=== PATIENT | male | born 1980 | race Two or more races ===

== ENCOUNTER 2018-04-01 09:22 | Outpatient (CLI) | payer OTHER | END 2018-04-01 11:22 | disposition home or self-care (01) | LOC: ECT 09:22 | DX: F31.81 Bipolar II disorder (principal); K44.9 Diaphragmatic hernia without obstruction or gangrene; L30.9 Dermatitis, unspecified; K21.9 Gastro-esophageal reflux disease without esophagitis ==

== ENCOUNTER 2018-04-21 05:09 | Outpatient (RCR) | payer OTHER ==
[~2018-04-21] VITALS: Ht 188 cm; Wt 107.0 kg
[2018-04-21] MEDS ORDERED: NS 500ML ONE (05:10)
[2018-04-21] MEDS ORDERED: Succinylcholine 20mg/ml 10ml vial ONE (05:10)
[2018-04-21] MEDS ORDERED: Ketorolac 60mg Inj IM ONE (05:10)
[2018-04-21] MEDS ORDERED: Methohexital Sodium Syr 100mg/10ml IVP ONE (05:10)
[2018-04-21 09:18] VITALS: BP 128/81
[2018-04-21] MEDS ORDERED: Sodium Chloride 500ML 500 ML IV ONE (09:46)
[2018-04-21] MEDS ORDERED: Excedrin Migraine tab ORAL PRN (09:46)
[2018-04-21 09:50] VITALS: BP 142/82
[2018-04-21 09:55] VITALS: BP 140/74
[2018-04-21 10:00] VITALS: BP 140/73
[2018-04-21 10:05] VITALS: BP 128/72
[2018-04-21 11:59] VITALS: BP 128/81
[2018-04-23] MEDS ORDERED: Ketorolac 60mg Inj IM ONE (08:00)
[2018-04-23] MEDS ORDERED: Methohexital Sodium Syr 100mg/10ml IVP ONE (08:00)
[2018-04-23] MEDS ORDERED: NS 500ML ONE (08:00)
[2018-04-23] MEDS ORDERED: Succinylcholine 20mg/ml 10ml vial ONE (08:00)
[2018-04-23 10:03] VITALS: BP 129/82
[2018-04-23] MEDS ORDERED: Sodium Chloride 500ML 500 ML IV ONE (10:19)
[2018-04-23] MEDS ORDERED: Excedrin Migraine tab ORAL PRN (10:19)
[2018-04-23 10:20] VITALS: BP 129/61
[2018-04-23 10:25] VITALS: BP 121/59
[2018-04-23 10:30] VITALS: BP 129/53
[2018-04-23 10:35] VITALS: BP 125/61
[2018-04-28 09:15] VITALS: BP 144/99
[2018-04-28] MEDS ORDERED: Sodium Chloride 500ML 500 ML IV ONE (09:28)
[2018-04-28] MEDS ORDERED: Excedrin Migraine tab ORAL PRN (09:28)
[2018-04-28 09:30] VITALS: BP 150/91
[2018-04-28 09:35] VITALS: BP 149/95
[2018-04-28 09:40] VITALS: BP 153/100
[2018-04-28 09:45] VITALS: BP 149/103
[2018-04-28] MEDS ORDERED: Ketorolac 60mg Inj IM ONE (15:17)
[2018-04-28] MEDS ORDERED: NS 500ML ONE (15:17)
[2018-04-28] MEDS ORDERED: Methohexital Sodium Syr 100mg/10ml IVP ONE (15:17)
[2018-04-28] MEDS ORDERED: Succinylcholine 20mg/ml 10ml vial ONE (15:17)
[2018-04-30] MEDS ORDERED: Succinylcholine 20mg/ml 10ml vial ONE (07:00)
[2018-04-30] MEDS ORDERED: NS 500ML ONE (07:00)
[2018-04-30] MEDS ORDERED: Ketorolac 60mg Inj IM ONE (07:00)
[2018-04-30] MEDS ORDERED: Methohexital Sodium Syr 100mg/10ml IVP ONE (07:00)
[2018-04-30 09:03] VITALS: BP 128/91
[2018-04-30] MEDS ORDERED: Sodium Chloride 500ML 500 ML IV ONE (09:17)
[2018-04-30 09:20] VITALS: BP 146/91
[2018-04-30 09:25] VITALS: BP 139/95
[2018-04-30 09:30] VITALS: BP 158/85
[2018-04-30 09:35] VITALS: BP 149/85
[2018-05-02 08:45] VITALS: BP 123/86
[2018-05-02] MEDS ORDERED: Sodium Chloride 500ML 500 ML IV ONE (08:58)
[2018-05-02 09:00] VITALS: BP 152/88
[2018-05-02 09:05] VITALS: BP 133/65
[2018-05-02 09:10] VITALS: BP 138/69
[2018-05-02 09:15] VITALS: BP 138/67
[2018-05-02] MEDS ORDERED: NS 500ML ONE (11:58)
[2018-05-02] MEDS ORDERED: Methohexital Sodium Syr 100mg/10ml IVP ONE (11:58)
[2018-05-02] MEDS ORDERED: Ketorolac 60mg Inj IM ONE (11:58)
[2018-05-02] MEDS ORDERED: Succinylcholine 20mg/ml 10ml vial ONE (11:58)
== END 2018-05-02 | disposition home or self-care (01) ==
LOC: ECT 05:09
DX: F31.81 Bipolar II disorder (principal)
CPT/HCPCS: 90870; J0330; J2405; J3360; J7040

== ENCOUNTER 2018-05-05 05:27 | Outpatient (RCR) | payer OTHER ==
[~2018-05-05] VITALS: Ht 188 cm; Wt 107.3 kg
[2018-05-05] MEDS ORDERED: NS 500ML ONE ×3 (05:28)
[2018-05-05] MEDS ORDERED: Ketamine 500mg Inj ONE ×2 (05:28)
[2018-05-05] MEDS ORDERED: Succinylcholine 20mg/ml 10ml vial ONE ×3 (05:28)
[2018-05-05] MEDS ORDERED: Ketorolac 60mg Inj IM ONE ×3 (05:28)
[2018-05-05] MEDS ORDERED: Methohexital Sodium Syr 100mg/10ml IVP ONE (05:28)
[2018-05-05 08:51] VITALS: BP 144/98
[2018-05-05] MEDS ORDERED: Atropine Sulfate 0.4mg/ml inj IVP PRN (09:08)
[2018-05-05] MEDS ORDERED: Sodium Chloride 500ML 500 ML IV ONE (09:08)
[2018-05-05 09:10] VITALS: BP 137/72
[2018-05-05 09:15] VITALS: BP 161/91
[2018-05-05 09:20] VITALS: BP 152/51
[2018-05-05 09:25] VITALS: BP 160/82
[2018-05-07] MEDS ORDERED: Succinylcholine 20mg/ml 10ml vial ONE (08:00)
[2018-05-07] MEDS ORDERED: Methohexital Sodium Syr 100mg/10ml IVP ONE (08:00)
[2018-05-07] MEDS ORDERED: NS 500ML ONE (08:00)
[2018-05-07] MEDS ORDERED: Ketorolac 60mg Inj IM ONE (08:00)
[2018-05-07 10:09] VITALS: BP 126/82
[2018-05-07 10:30] VITALS: BP 141/92
[2018-05-07 10:35] VITALS: BP 153/48
[2018-05-07 10:40] VITALS: BP 160/73
[2018-05-07 10:45] VITALS: BP 159/78
[2018-05-07] MEDS ORDERED: Sodium Chloride 500ML 500 ML IV ONE (14:30)
[2018-05-09] MEDS ORDERED: NS 500ML ONE (08:00)
[2018-05-09] MEDS ORDERED: Ketorolac 60mg Inj IM ONE (08:00)
[2018-05-09] MEDS ORDERED: Methohexital Sodium Syr 100mg/10ml IVP ONE (08:00)
[2018-05-09] MEDS ORDERED: Midazolam 2mg/2ml Inj ONE (08:00)
[2018-05-09] MEDS ORDERED: Succinylcholine 20mg/ml 10ml vial ONE (08:00)
[2018-05-09 08:16] VITALS: BP 130/89
[2018-05-09] MEDS ORDERED: Sodium Chloride 500ML 500 ML IV ONE ×2 (08:30)
[2018-05-09 08:35] VITALS: BP 142/78
[2018-05-09 08:40] VITALS: BP 142/78
[2018-05-09 08:45] VITALS: BP 138/79
[2018-05-09 08:50] VITALS: BP 133/77
[2018-05-12] MEDS ORDERED: NS 500ML ONE (07:00)
[2018-05-12] MEDS ORDERED: Ketorolac 60mg Inj IM ONE (07:00)
[2018-05-12] MEDS ORDERED: Succinylcholine 20mg/ml 10ml vial ONE (07:00)
[2018-05-12] MEDS ORDERED: Ketamine 500mg Inj ONE (07:00)
[2018-05-12 10:11] VITALS: BP 133/90
[2018-05-12] MEDS ORDERED: Sodium Chloride 500ML 500 ML IV ONE (10:28)
[2018-05-12 10:30] VITALS: BP 147/86
[2018-05-12 10:35] VITALS: BP 157/71
[2018-05-12 10:40] VITALS: BP 156/71
[2018-05-12 10:45] VITALS: BP 129/85
[2018-05-14] MEDS ORDERED: Ketamine 500mg Inj ONE (08:00)
[2018-05-14] MEDS ORDERED: Succinylcholine 20mg/ml 10ml vial ONE (08:00)
[2018-05-14] MEDS ORDERED: Ketorolac 60mg Inj IM ONE (08:00)
[2018-05-14] MEDS ORDERED: NS 500ML ONE (08:00)
[2018-05-14 08:31] VITALS: BP 125/75
[2018-05-14] MEDS ORDERED: Sodium Chloride 500ML 500 ML IV ONE (08:45)
[2018-05-14 08:50] VITALS: BP 170/94
[2018-05-14 08:55] VITALS: BP 177/88
[2018-05-14 08:58] VITALS: BP 158/101
[2018-05-14 09:05] VITALS: BP 163/90
[2018-05-16] MEDS ORDERED: NS 500ML ONE (07:00)
[2018-05-16] MEDS ORDERED: Succinylcholine 20mg/ml 10ml vial ONE (07:00)
[2018-05-16] MEDS ORDERED: Ketorolac 60mg Inj IM ONE (07:00)
[2018-05-16] MEDS ORDERED: Ketamine 500mg Inj ONE (07:00)
[2018-05-16 09:41] VITALS: BP 133/93
[2018-05-16] MEDS ORDERED: Sodium Chloride 500ML 500 ML IV ONE (09:53)
[2018-05-16 09:55] VITALS: BP 158/103
[2018-05-16 10:00] VITALS: BP 172/99
[2018-05-16 10:05] VITALS: BP 162/100
[2018-05-16 10:10] VITALS: BP 165/100
[2018-05-19 09:13] VITALS: BP 148/98
[2018-05-19] MEDS ORDERED: Sodium Chloride 500ML 500 ML IV ONE (09:29)
[2018-05-19 09:30] VITALS: BP 148/89
[2018-05-19 09:35] VITALS: BP 158/92
[2018-05-19 09:40] VITALS: BP 163/97
[2018-05-19 09:45] VITALS: BP 168/93
[2018-05-21] MEDS ORDERED: Succinylcholine 20mg/ml 10ml vial ONE (07:00)
[2018-05-21] MEDS ORDERED: NS 500ML ONE (07:00)
[2018-05-21] MEDS ORDERED: Ketorolac 60mg Inj IM ONE (07:00)
[2018-05-21] MEDS ORDERED: Ketamine 500mg Inj ONE (07:00)
[2018-05-21 09:19] VITALS: BP 130/92
[2018-05-21 09:30] VITALS: BP 170/110
[2018-05-21] MEDS ORDERED: Sodium Chloride 500ML 500 ML IV ONE (09:30)
[2018-05-21 09:35] VITALS: BP 187/92
[2018-05-21 09:40] VITALS: BP 176/102
[2018-05-21 09:45] VITALS: BP 186/99
[2018-05-23] MEDS ORDERED: NS 500ML ONE (06:00)
[2018-05-23] MEDS ORDERED: Ketamine 500mg Inj ONE (06:00)
[2018-05-23] MEDS ORDERED: Succinylcholine 20mg/ml 10ml vial ONE (06:00)
[2018-05-23] MEDS ORDERED: Ketorolac 60mg Inj IM ONE (06:00)
[2018-05-23 09:01] VITALS: BP 138/90
[2018-05-23] MEDS ORDERED: Sodium Chloride 500ML 500 ML IV ONE (09:14)
[2018-05-23 09:15] VITALS: BP 176/104
[2018-05-23 09:20] VITALS: BP 170/100
[2018-05-23 09:25] VITALS: BP 168/97
[2018-05-23 09:30] VITALS: BP 162/93
[2018-05-28 11:37] VITALS: BP 144/104
[2018-05-28] MEDS ORDERED: Sodium Chloride 500ML 500 ML IV ONE (11:53)
[2018-05-28 11:55] VITALS: BP 152/94
[2018-05-28 12:00] VITALS: BP 134/86
[2018-05-28 12:05] VITALS: BP 143/86
[2018-05-28 12:10] VITALS: BP 143/74
== END 2018-06-02 | disposition home or self-care (01) ==
LOC: ECT 05:27
DX: F31.81 Bipolar II disorder (principal)
CPT/HCPCS: 90870; J0330; J2250; J2405; J3360; J3490; J7040

== ENCOUNTER 2018-06-06 07:34 | Outpatient (RCR) | payer OTHER ==
[~2018-06-06] VITALS: Ht 188 cm; Wt 107.3 kg
[2018-06-06] MEDS ORDERED: Succinylcholine 20mg/ml 10ml vial ONE (07:35)
[2018-06-06] MEDS ORDERED: NS 500ML ONE (07:35)
[2018-06-06] MEDS ORDERED: Ketorolac 60mg Inj IM ONE (07:35)
[2018-06-06] MEDS ORDERED: Ketamine 500mg Inj ONE (07:35)
[2018-06-06 09:13] VITALS: BP 121/53
[2018-06-06 09:30] VITALS: BP 188/96
[2018-06-06 09:35] VITALS: BP 165/93
[2018-06-06 09:40] VITALS: BP 171/95
[2018-06-06 09:45] VITALS: BP 159/99
[2018-06-20] VITALS (8 sets, daily range): BP systolic 129–160; BP diastolic 70–99
[2018-06-20] MEDS ORDERED: Ketamine 500mg Inj ONE (07:00)
[2018-06-20] MEDS ORDERED: Ketorolac 60mg Inj IM ONE (07:00)
[2018-06-20] MEDS ORDERED: NS 500ML ONE (07:00)
[2018-06-20] MEDS ORDERED: Succinylcholine 20mg/ml 10ml vial ONE (07:00)
== END 2018-07-03 | disposition home or self-care (01) ==
LOC: ECT 07:34
DX: F31.81 Bipolar II disorder (principal); K44.9 Diaphragmatic hernia without obstruction or gangrene; K21.9 Gastro-esophageal reflux disease without esophagitis; L30.9 Dermatitis, unspecified
CPT/HCPCS: 90870; J0330; J2405; J3360; J3490; J7040

== ENCOUNTER 2018-07-09 05:50 | Outpatient (RCR) | payer OTHER ==
[~2018-07-09] VITALS: Ht 30.5 cm; Wt 0.5 kg
[2018-07-09] MEDS ORDERED: Ketamine 500mg Inj ONE (05:51)
[2018-07-09] MEDS ORDERED: NS 500ML ONE (05:51)
[2018-07-09] MEDS ORDERED: Succinylcholine 20mg/ml 10ml vial ONE (05:51)
[2018-07-09] MEDS ORDERED: Ketorolac 60mg Inj IM ONE (05:51)
[2018-07-11 09:17] VITALS: BP 129/83
[2018-07-11 09:35] VITALS: BP 154/94
[2018-07-11 09:40] VITALS: BP 157/85
[2018-07-11 09:45] VITALS: BP 163/88
[2018-07-11 09:50] VITALS: BP 153/99
[2018-07-30] MEDS ORDERED: Succinylcholine 20mg/ml 10ml vial ONE (06:00)
[2018-07-30] MEDS ORDERED: Ketamine 500mg Inj ONE (06:00)
[2018-07-30] MEDS ORDERED: Ketorolac 60mg Inj IM ONE (06:00)
[2018-07-30] MEDS ORDERED: NS 500ML ONE (06:00)
[2018-07-30 08:46] VITALS: BP 125/89
[2018-07-30 09:05] VITALS: BP 151/79
[2018-07-30 09:10] VITALS: BP 161/81
[2018-07-30 09:15] VITALS: BP 152/82
[2018-07-30 09:20] VITALS: BP 145/94
[2018-07-31] MEDS ORDERED: Succinylcholine 20mg/ml 10ml vial ONE ×2 (13:26→22:47)
[2018-07-31] MEDS ORDERED: NS 500ML ONE (22:47)
[2018-07-31] MEDS ORDERED: Ketorolac 60mg Inj IM ONE (22:47)
[2018-07-31] MEDS ORDERED: Ketamine 500mg Inj ONE (22:47)
== END 2018-07-31 | disposition home or self-care (01) ==
LOC: ECT 05:50
DX: F31.81 Bipolar II disorder (principal)
CPT/HCPCS: 90870; J0330; J2405; J3360; J3490; J7040

== ENCOUNTER 2018-08-20 06:07 | Outpatient (RCR) | payer OTHER ==
[~2018-08-20] VITALS: Ht 30.5 cm; Wt 0.5 kg
[2018-08-20] MEDS ORDERED: Ketorolac 60mg Inj IM ONE (06:08)
[2018-08-20] MEDS ORDERED: NS 500ML ONE (06:08)
[2018-08-20] MEDS ORDERED: Ketamine 500mg Inj ONE (06:08)
[2018-08-20] MEDS ORDERED: Succinylcholine 20mg/ml 10ml vial ONE (06:08)
[2018-08-20 09:50] VITALS: BP 146/89
[2018-08-20 10:05] VITALS: BP 131/71
[2018-08-20 10:10] VITALS: BP 142/76
[2018-08-20 10:15] VITALS: BP 142/85
[2018-08-20 10:20] VITALS: BP 158/43
== END 2018-08-31 | disposition home or self-care (01) ==
LOC: ECT 06:07
DX: F31.81 Bipolar II disorder (principal)
CPT/HCPCS: 90870; J0330; J2405; J3360; J3490; J7040

== ENCOUNTER 2018-09-15 09:13 | Outpatient (RCR) | payer OTHER ==
[~2018-09-15] VITALS: Ht 188 cm; Wt 107.0 kg
[2018-09-15] MEDS ORDERED: Ketorolac 60mg Inj IM ONE (09:14)
[2018-09-15] MEDS ORDERED: NS 500ML ONE (09:14)
[2018-09-15] MEDS ORDERED: Ketamine 500mg Inj ONE (09:14)
[2018-09-15] MEDS ORDERED: Succinylcholine 20mg/ml 10ml vial ONE (09:14)
[2018-09-15 10:41] VITALS: BP 130/90
[2018-09-15 10:55] VITALS: BP 139/72
[2018-09-15 11:00] VITALS: BP 145/83
[2018-09-15 11:05] VITALS: BP 150/84
[2018-09-15 11:10] VITALS: BP 138/76
== END 2018-09-30 | disposition home or self-care (01) ==
LOC: ECT 09:13
DX: F31.81 Bipolar II disorder (principal)
CPT/HCPCS: 90870; J0330; J2405; J3360; J3490; J7040

== ENCOUNTER 2018-10-06 08:09 | Outpatient (RCR) | payer OTHER ==
[~2018-10-06] VITALS: Ht 30.5 cm; Wt 0.5 kg
[2018-10-06] MEDS ORDERED: Ketamine 500mg Inj ONE (08:10)
[2018-10-06] MEDS ORDERED: NS 500ML ONE (08:10)
[2018-10-06] MEDS ORDERED: Succinylcholine 20mg/ml 10ml vial ONE (08:10)
[2018-10-06] MEDS ORDERED: Ketorolac 60mg Inj IM ONE (08:10)
[2018-10-06 09:04] VITALS: BP 120/90
[2018-10-06 09:20] VITALS: BP 147/67
[2018-10-06 09:25] VITALS: BP 141/82
[2018-10-06 09:30] VITALS: BP 142/98
[2018-10-06 09:35] VITALS: BP 130/76
[2018-10-24] MEDS ORDERED: Ketorolac 60mg Inj IM ONE (08:00)
[2018-10-24] MEDS ORDERED: NS 500ML ONE (08:00)
[2018-10-24] MEDS ORDERED: Ketamine 500mg Inj ONE (08:00)
[2018-10-24] MEDS ORDERED: Succinylcholine 20mg/ml 10ml vial ONE (08:00)
[2018-10-24 08:37] VITALS: BP 132/88
[2018-10-24 08:55] VITALS: BP 128/85
[2018-10-24 09:00] VITALS: BP 138/84
[2018-10-24 09:05] VITALS: BP 139/70
[2018-10-24 09:10] VITALS: BP 141/84
== END 2018-10-31 | disposition home or self-care (01) ==
LOC: ECT 08:09
DX: F31.81 Bipolar II disorder (principal)
CPT/HCPCS: 90870; J0330; J2405; J3360; J3490; J7040

== ENCOUNTER 2018-11-19 06:44 | Outpatient (RCR) | payer OTHER ==
[~2018-11-19] VITALS: Ht 188 cm; Wt 107.0 kg
[2018-11-19] MEDS ORDERED: NS 500ML ONE (06:45)
[2018-11-19] MEDS ORDERED: Ketamine 500mg Inj ONE (06:45)
[2018-11-19] MEDS ORDERED: Ketorolac 60mg Inj IM ONE (06:45)
[2018-11-19] MEDS ORDERED: Succinylcholine 20mg/ml 10ml vial ONE (06:45)
[2018-11-19 08:51] VITALS: BP 127/87
[2018-11-19 09:09] VITALS: BP 142/71
[2018-11-19 09:14] VITALS: BP 144/85
[2018-11-19 09:19] VITALS: BP 141/82
[2018-11-19 09:24] VITALS: BP 147/74
== END 2018-11-30 | disposition home or self-care (01) ==
LOC: ECT 06:44
DX: F31.81 Bipolar II disorder (principal)
CPT/HCPCS: 90870; J0330; J2405; J3360; J3490; J7040

== ENCOUNTER 2018-12-10 04:42 | Outpatient (RCR) | payer OTHER ==
[~2018-12-10] VITALS: Ht 188 cm; Wt 107.0 kg
[2018-12-10] MEDS ORDERED: Ketamine 500mg Inj ONE (06:00)
[2018-12-10] MEDS ORDERED: Ketorolac 30mg Inj ONE (06:00)
[2018-12-10] MEDS ORDERED: NS 500ML ONE (06:00)
[2018-12-10] MEDS ORDERED: Succinylcholine 20mg/ml 10ml vial ONE (06:00)
[2018-12-10 09:43] VITALS: BP 150/73
[2018-12-10 09:58] VITALS: BP 154/89
[2018-12-10 10:03] VITALS: BP 147/86
[2018-12-10 10:08] VITALS: BP 152/76
[2018-12-10 10:13] VITALS: BP 151/83
[2018-12-31] MEDS ORDERED: Ketorolac 60mg Inj IM ONE (06:00)
[2018-12-31] MEDS ORDERED: Ketamine 500mg Inj ONE (06:00)
[2018-12-31] MEDS ORDERED: Succinylcholine 20mg/ml 10ml vial ONE (06:00)
[2018-12-31] MEDS ORDERED: NS 500ML ONE (06:00)
[2018-12-31 08:31] VITALS: BP 140/89
[2018-12-31 08:50] VITALS: BP 142/77
[2018-12-31 08:55] VITALS: BP 154/79
[2018-12-31 09:00] VITALS: BP 147/86
[2018-12-31 09:05] VITALS: BP 150/89
== END 2018-12-31 | disposition home or self-care (01) ==
LOC: ECT 04:42
DX: F31.81 Bipolar II disorder (principal)
CPT/HCPCS: 90870; J0330; J1885; J2405; J3360; J3490; J7040

== ENCOUNTER 2019-01-02 04:36 | Outpatient (RCR) | payer OTHER ==
[~2019-01-02] VITALS: Ht 188 cm; Wt 107.0 kg
[2019-01-02] MEDS ORDERED: Ketamine 500mg Inj ONE ×3 (04:37)
[2019-01-02] MEDS ORDERED: Ketorolac 60mg Inj IM ONE ×2 (04:37)
[2019-01-02] MEDS ORDERED: Succinylcholine 20mg/ml 10ml vial ONE ×2 (04:37)
[2019-01-02] MEDS ORDERED: NS 500ML ONE ×2 (04:37)
[2019-01-02 08:56] VITALS: BP 146/108
[2019-01-02 09:10] VITALS: BP 152/103
[2019-01-02 09:15] VITALS: BP 148/87
[2019-01-02 09:20] VITALS: BP 148/90
[2019-01-02 09:25] VITALS: BP 142/89
[2019-01-07] MEDS ORDERED: NS 500ML ONE (06:00)
[2019-01-07] MEDS ORDERED: Ketorolac 60mg Inj IM ONE (06:00)
[2019-01-07] MEDS ORDERED: Ketamine 500mg Inj ONE (06:00)
[2019-01-07] MEDS ORDERED: Succinylcholine 20mg/ml 10ml vial ONE (06:00)
[2019-01-07 10:36] VITALS: BP 129/86
[2019-01-07 10:50] VITALS: BP 152/100
[2019-01-07 10:55] VITALS: BP 157/88
[2019-01-07 11:00] VITALS: BP 155/90
[2019-01-07 11:05] VITALS: BP 161/78
[2019-01-21 08:40] VITALS: BP 148/91
[2019-01-21 08:55] VITALS: BP 153/82
[2019-01-21 09:00] VITALS: BP 138/75
[2019-01-21 09:05] VITALS: BP 140/67
[2019-01-21 09:10] VITALS: BP 146/75
== END 2019-01-31 | disposition home or self-care (01) ==
LOC: ECT 04:36
DX: F31.81 Bipolar II disorder (principal)
CPT/HCPCS: 90870; J0330; J2405; J3360; J3490; J7040

== ENCOUNTER 2019-02-04 08:32 | Outpatient (RCR) | payer OTHER ==
[~2019-02-04] VITALS: Ht 188 cm; Wt 107.0 kg
[2019-02-04] MEDS ORDERED: Succinylcholine 20mg/ml 10ml vial ONE (08:33)
[2019-02-04] MEDS ORDERED: Ketamine 500mg Inj ONE (08:33)
[2019-02-04] MEDS ORDERED: Ketorolac 60mg Inj IM ONE (08:33)
[2019-02-04] MEDS ORDERED: NS 500ML ONE (08:33)
[2019-02-04 10:07] VITALS: BP 148/80
[2019-02-04 10:20] VITALS: BP 158/89
[2019-02-04 10:25] VITALS: BP 161/97
[2019-02-04 10:30] VITALS: BP 151/87
[2019-02-04 10:35] VITALS: BP 156/79
[2019-02-23] MEDS ORDERED: Ketorolac 30mg Inj ONE (06:00)
[2019-02-23] MEDS ORDERED: Ketamine 500mg Inj ONE (06:00)
[2019-02-23] MEDS ORDERED: Succinylcholine 20mg/ml 10ml vial ONE (06:00)
[2019-02-23] MEDS ORDERED: NS 500ML ONE (06:00)
[2019-02-23 08:52] VITALS: BP 139/71
[2019-02-23 09:05] VITALS: BP 139/63
[2019-02-23 09:10] VITALS: BP 138/81
[2019-02-23 09:15] VITALS: BP 133/75
[2019-02-23 09:20] VITALS: BP 136/75
== END 2019-03-02 | disposition home or self-care (01) ==
LOC: ECT 08:32
DX: F31.81 Bipolar II disorder (principal)
CPT/HCPCS: 90870; J0330; J1885; J2405; J3360; J3490; J7040

== ENCOUNTER 2019-03-11 05:57 | Outpatient (RCR) | payer OTHER ==
[~2019-03-11] VITALS: Ht 188 cm; Wt 107.0 kg
[2019-03-11] MEDS ORDERED: NS 500ML ONE (05:58)
[2019-03-11] MEDS ORDERED: Succinylcholine 20mg/ml 10ml vial ONE (05:58)
[2019-03-11] MEDS ORDERED: Ketorolac 60mg Inj IM ONE (05:58)
[2019-03-11] MEDS ORDERED: Ketamine 500mg Inj ONE (05:58)
[2019-03-11 09:04] VITALS: BP 135/83
[2019-03-11 09:18] VITALS: BP 116/61
[2019-03-11 09:23] VITALS: BP 134/75
[2019-03-11 09:28] VITALS: BP 123/66
[2019-03-11 09:33] VITALS: BP 118/71
[2019-03-27] MEDS ORDERED: Succinylcholine 20mg/ml 10ml vial ONE (09:00)
[2019-03-27] MEDS ORDERED: Ketorolac 60mg Inj IM ONE (09:00)
[2019-03-27] MEDS ORDERED: Ketamine 500mg Inj ONE (09:00)
[2019-03-27] MEDS ORDERED: NS 500ML ONE (09:00)
[2019-03-27 09:40] VITALS: BP 138/95
[2019-03-27 09:51] VITALS: BP 122/80
[2019-03-27 09:56] VITALS: BP 138/78
[2019-03-27 10:01] VITALS: BP 149/85
[2019-03-27 10:06] VITALS: BP 156/85
== END 2019-04-02 | disposition home or self-care (01) ==
LOC: ECT 05:57
DX: F31.81 Bipolar II disorder (principal)
CPT/HCPCS: 90870; J0330; J2405; J3360; J3490; J7040

== ENCOUNTER 2019-04-17 04:31 | Outpatient (RCR) | payer OTHER ==
[~2019-04-17] VITALS: Ht 30.5 cm; Wt 0.5 kg
[2019-04-17] MEDS ORDERED: NS 500ML ONE (04:32)
[2019-04-17] MEDS ORDERED: Succinylcholine 20mg/ml 10ml vial ONE (04:32)
[2019-04-17] MEDS ORDERED: Ketamine 500mg/10ml vial ONE ×2 (04:32)
[2019-04-17] MEDS ORDERED: Ketorolac 60mg Inj IM ONE (04:32)
[2019-04-17 08:30] VITALS: BP 146/89
[2019-04-17 08:45] VITALS: BP 163/99
[2019-04-17 08:50] VITALS: BP 153/92
[2019-04-17 08:55] VITALS: BP 149/94
[2019-04-17 09:00] VITALS: BP 154/98
== END 2019-05-02 | disposition home or self-care (01) ==
LOC: ECT 04:31
DX: F31.81 Bipolar II disorder (principal)
CPT/HCPCS: 90870; J0330; J2405; J3360; J3490; J7040

== ENCOUNTER 2019-05-08 05:05 | Outpatient (RCR) | payer OTHER ==
[~2019-05-08] VITALS: Ht 188 cm; Wt 107.0 kg
[2019-05-08] MEDS ORDERED: Ketamine 500mg/10ml vial ONE ×2 (05:06→06:00)
[2019-05-08] MEDS ORDERED: Ketorolac 60mg Inj IM ONE (05:06)
[2019-05-08] MEDS ORDERED: Succinylcholine 20mg/ml 10ml vial ONE ×2 (05:06→06:00)
[2019-05-08] MEDS ORDERED: NS 500ML ONE ×2 (05:06→06:00)
[2019-05-08] MEDS ORDERED: Ketorolac 30mg Inj ONE (06:00)
[2019-05-08 08:29] VITALS: BP 123/78
[2019-05-08 08:36] VITALS: BP 139/75
[2019-05-08 08:41] VITALS: BP 133/76
[2019-05-08 08:46] VITALS: BP 140/67
[2019-05-08 08:51] VITALS: BP 127/60
[2019-05-29 08:38] VITALS: BP 136/80
[2019-05-29 08:52] VITALS: BP 135/73
[2019-05-29 08:57] VITALS: BP 118/65
[2019-05-29 09:02] VITALS: BP 132/78
[2019-05-29 09:07] VITALS: BP 124/69
== END 2019-06-02 | disposition home or self-care (01) ==
LOC: ECT 05:05
DX: F31.81 Bipolar II disorder (principal)
CPT/HCPCS: 90870; J2405

== ENCOUNTER 2019-07-10 05:27 | Outpatient (RCR) | payer OTHER ==
[~2019-07-10] VITALS: Ht 188 cm; Wt 107.0 kg
[2019-07-10] MEDS ORDERED: Succinylcholine 20mg/ml 10ml vial ONE (06:00)
[2019-07-10] MEDS ORDERED: Ketorolac 30mg Inj ONE (06:00)
[2019-07-10] MEDS ORDERED: NS 500ML ONE (06:00)
[2019-07-10] MEDS ORDERED: Ketamine 500mg/10ml vial ONE (06:00)
[2019-07-10 08:58] VITALS: BP 126/89
[2019-07-10 09:20] VITALS: BP 139/75
[2019-07-10 09:25] VITALS: BP 133/73
[2019-07-10 09:30] VITALS: BP 131/66
[2019-07-10 09:35] VITALS: BP 137/76
== END 2019-08-01 | disposition home or self-care (01) ==
LOC: ECT 05:27
DX: F31.81 Bipolar II disorder (principal)
CPT/HCPCS: 90870; J0330; J1885; J2405; J3360; J3490; J7040

== ENCOUNTER 2019-08-07 05:04 | Outpatient (RCR) | payer OTHER ==
[~2019-08-07] VITALS: Ht 188 cm; Wt 107.0 kg
[2019-08-07 08:57] VITALS: BP 139/99
[2019-08-07 09:17] VITALS: BP 134/69
[2019-08-07 09:22] VITALS: BP 138/65
[2019-08-07 09:27] VITALS: BP 135/63
[2019-08-07 09:32] VITALS: BP 126/62
[2019-08-28] MEDS ORDERED: Ketorolac 30mg Inj ONE (06:00)
[2019-08-28] MEDS ORDERED: Ketamine 500mg/10ml vial ONE (06:00)
[2019-08-28] MEDS ORDERED: NS 500ML ONE (06:00)
[2019-08-28] MEDS ORDERED: Succinylcholine 20mg/ml 10ml vial ONE (06:00)
[2019-08-28 08:40] VITALS: BP 169/85
[2019-08-28 08:55] VITALS: BP 138/70
[2019-08-28 09:00] VITALS: BP 134/96
[2019-08-28 09:10] VITALS: BP 147/85
[2019-08-28 09:15] VITALS: BP 142/79
== END 2019-09-01 | disposition home or self-care (01) ==
LOC: ECT 05:04
DX: F31.81 Bipolar II disorder (principal)
CPT/HCPCS: 90870; J0330; J1885; J2405; J3360; J3490; J7040

== ENCOUNTER 2019-09-25 07:14 | Outpatient (RCR) | payer OTHER ==
[~2019-09-25] VITALS: Ht 188 cm; Wt 107.0 kg
[2019-09-25] MEDS ORDERED: NS 500ML ONE (07:15)
[2019-09-25] MEDS ORDERED: Succinylcholine 20mg/ml 10ml vial ONE (07:15)
[2019-09-25] MEDS ORDERED: Ketorolac 60mg Inj IM ONE (07:15)
[2019-09-25] MEDS ORDERED: Ketamine 500mg/10ml vial ONE (07:15)
--- NOTE | 2019-09-25 11:57 | NUR ---
Pt. arrived at 0800 and stating that he is feeling nauseated. Around 0810 pt.started to vomit.IV was inserted. Dr Joe did assess the pt also Dr. Todd. Zofran IV administered by Dr. Joe and IV fluids administered NS 500 ml. Treatment was canceled for today and pt was advises to fallow up with his physician. VS at 0930 Temp 96.6, BP 131/69, HR 92, O2 sat 92 on RA. Pt is going home with his .
[2019-09-30 09:43] VITALS: BP 144/87
[2019-09-30] MEDS ORDERED: Atropine Sulfate 0.4mg/ml inj IVP PRN (10:04)
[2019-09-30] MEDS ORDERED: Lidocaine 2% 100mg/5ml Carp IV PRN (10:04)
[2019-09-30 10:05] VITALS: BP 151/64
[2019-09-30 10:10] VITALS: BP 140/82
[2019-09-30 10:15] VITALS: BP 147/82
[2019-09-30 10:20] VITALS: BP 153/82
== END 2019-10-01 | disposition home or self-care (01) ==
LOC: ECT 07:14
DX: F31.81 Bipolar II disorder (principal)
CPT/HCPCS: 90870; J0330; J2405; J3360; J3490; J7040

== ENCOUNTER 2019-10-28 05:51 | Outpatient (RCR) | payer OTHER ==
[~2019-10-28] VITALS: Ht 30.5 cm; Wt 0.5 kg
[2019-10-28] MEDS ORDERED: Succinylcholine 20mg/ml 10ml vial ONE (05:52)
[2019-10-28] MEDS ORDERED: Ketamine HCl 50mg/ml 1ml Syr ONE (05:52)
[2019-10-28] MEDS ORDERED: Ketorolac 60mg Inj IM ONE (05:52)
[2019-10-28 08:23] VITALS: BP 134/97
[2019-10-28 08:49] VITALS: BP 144/84
[2019-10-28] MEDS ORDERED: Lidocaine 2% 100mg/5ml Carp IV PRN (08:49)
[2019-10-28] MEDS ORDERED: Atropine Sulfate 0.4mg/ml inj IVP PRN (08:49)
[2019-10-28 08:54] VITALS: BP 157/95
[2019-10-28 08:59] VITALS: BP 148/89
[2019-10-28 09:04] VITALS: BP 149/88
== END 2019-11-01 | disposition home or self-care (01) ==
LOC: ECT 05:51
DX: F31.81 Bipolar II disorder (principal)
CPT/HCPCS: 90870; J0330; J2405; J3360

== ENCOUNTER 2019-11-25 05:09 | Outpatient (RCR) | payer OTHER ==
[~2019-11-25] VITALS: Ht 188 cm; Wt 107.0 kg
[2019-11-25] MEDS ORDERED: Ketamine 500mg/10ml vial ONE (06:00)
[2019-11-25] MEDS ORDERED: Ketorolac 30mg Inj ONE (06:00)
[2019-11-25] MEDS ORDERED: NS 500ML ONE (06:00)
[2019-11-25] MEDS ORDERED: Succinylcholine 20mg/ml 10ml vial ONE (06:00)
[2019-11-25 08:38] VITALS: BP 148/95
[2019-11-25] MEDS ORDERED: Lidocaine 2% 100mg/5ml Carp IV PRN (09:09)
[2019-11-25] MEDS ORDERED: Atropine Sulfate 0.4mg/ml inj IVP PRN (09:09)
[2019-11-25 09:10] VITALS: BP 140/88
[2019-11-25 09:15] VITALS: BP 147/80
[2019-11-25 09:20] VITALS: BP 139/90
[2019-11-25 09:25] VITALS: BP 122/84
== END 2019-12-01 | disposition home or self-care (01) ==
LOC: ECT 05:09
DX: F31.81 Bipolar II disorder (principal)
CPT/HCPCS: 90870; J0330; J1885; J2405; J3360; J3490; J7040

== ENCOUNTER 2019-12-16 04:36 | Outpatient (RCR) | payer OTHER ==
[~2019-12-16] VITALS: Ht 188 cm; Wt 107.0 kg
[2019-12-16] MEDS ORDERED: Ketorolac 60mg Inj IM ONE (04:37)
[2019-12-16] MEDS ORDERED: Succinylcholine 20mg/ml 10ml vial ONE (04:37)
[2019-12-16] MEDS ORDERED: NS 500ML ONE (04:37)
[2019-12-16] MEDS ORDERED: Methohexital Sodium Syr 100mg/10ml IVP ONE (04:37)
[2019-12-16 08:23] VITALS: BP 144/88
[2019-12-16 08:36] VITALS: BP 144/98
[2019-12-16 08:41] VITALS: BP 153/76
[2019-12-16 08:46] VITALS: BP 137/88
[2019-12-16 08:51] VITALS: BP 140/92
== END 2020-01-01 | disposition home or self-care (01) ==
LOC: ECT 04:36
DX: F31.81 Bipolar II disorder (principal)
CPT/HCPCS: 90870; J0330; J2405; J3360; J7040

== ENCOUNTER 2020-01-06 05:15 | Outpatient (RCR) | payer OTHER ==
[2020-01-06] VITALS (7 sets, daily range): BP systolic 130–143; BP diastolic 75–97
[~2020-01-06] VITALS: Ht 188 cm; Wt 107.3 kg
[2020-01-06] MEDS ORDERED: Succinylcholine 20mg/ml 10ml vial ONE (05:16)
[2020-01-06] MEDS ORDERED: NS 500ML ONE (05:16)
[2020-01-06] MEDS ORDERED: Methotrexate Sodium 25mg/ml 10ML vial ONE (05:16)
[2020-01-06] MEDS ORDERED: Ketorolac 60mg Inj IM ONE (05:16)
[2020-01-06] MEDS ORDERED: Lidocaine 2% 100mg/5ml Carp IV PRN (09:59)
[2020-01-06] MEDS ORDERED: Atropine Sulfate 0.4mg/ml inj IVP PRN (09:59)
== END 2020-02-01 | disposition home or self-care (01) ==
LOC: ECT 05:15
DX: F31.81 Bipolar II disorder (principal)
CPT/HCPCS: 90870; J0330; J2405; J3360; J7040; J9260

== ENCOUNTER 2020-02-05 07:00 | Outpatient (RCR) | payer OTHER ==
[~2020-02-05] VITALS: Ht 188 cm; Wt 107.0 kg
[2020-02-05] VITALS (7 sets, daily range): BP systolic 119–143; BP diastolic 63–97
[2020-02-05] MEDS ORDERED: NS 500ML ONE (07:01)
[2020-02-05] MEDS ORDERED: Methohexita Syr 100mg/10ml IVP ONE (07:01)
[2020-02-05] MEDS ORDERED: Ketorolac 30mg Inj ONE (07:01)
[2020-02-05] MEDS ORDERED: Succinylcholine 20mg/ml 10ml vial ONE (07:01)
== END 2020-03-02 | disposition home or self-care (01) ==
LOC: ECT 07:00
DX: F31.81 Bipolar II disorder (principal)
CPT/HCPCS: 90870; J0330; J1885; J2405; J3360; J7040

== ENCOUNTER 2020-03-04 05:10 | Outpatient (RCR) | payer OTHER ==
[~2020-03-04] VITALS: Ht 188 cm; Wt 107.0 kg
[2020-03-04] VITALS (7 sets, daily range): BP systolic 134–151; BP diastolic 69–94
[2020-03-04] MEDS ORDERED: Methohexital Sodium Syr 100mg/10ml IVP ONE (05:11)
[2020-03-04] MEDS ORDERED: NS 500ML ONE (05:11)
[2020-03-04] MEDS ORDERED: Ketorolac 60mg Inj IM ONE (05:11)
[2020-03-04] MEDS ORDERED: Succinylcholine 20mg/ml 10ml vial ONE (05:11)
[2020-04-01] VITALS (7 sets, daily range): BP systolic 121–160; BP diastolic 82–96
[2020-04-01] MEDS ORDERED: Methohexital Sodium Syr 100mg/10ml IVP ONE (07:00)
[2020-04-01] MEDS ORDERED: Succinylcholine 20mg/ml 10ml vial ONE (07:00)
[2020-04-01] MEDS ORDERED: NS 500ML ONE (07:00)
[2020-04-01] MEDS ORDERED: Ketorolac 60mg Inj IM ONE (07:00)
== END 2020-04-02 | disposition home or self-care (01) ==
LOC: ECT 05:10
DX: F31.81 Bipolar II disorder (principal)
CPT/HCPCS: 90870; J0330; J2405; J3360; J7040

== ENCOUNTER 2020-04-27 05:11 | Outpatient (RCR) | payer OTHER ==
[~2020-04-27] VITALS: Ht 188 cm; Wt 107.0 kg
[2020-04-27] VITALS (7 sets, daily range): BP systolic 124–152; BP diastolic 67–99
[2020-04-27] MEDS ORDERED: Ketorolac 60mg Inj IM ONE (05:12)
[2020-04-27] MEDS ORDERED: NS 500ML ONE (05:12)
[2020-04-27] MEDS ORDERED: Succinylcholine 20mg/ml 10ml vial ONE (05:12)
[2020-04-27] MEDS ORDERED: Methohexita Syr 100mg/10ml IVP ONE (05:12)
[2020-04-27] MEDS ORDERED: Atropine Sulfate 0.4mg/ml inj IVP PRN (09:49)
== END 2020-05-02 | disposition home or self-care (01) ==
LOC: ECT 05:11
DX: F31.81 Bipolar II disorder (principal)
CPT/HCPCS: 90870; J0330; J2405; J3360; J7040

== ENCOUNTER 2020-06-01 06:10 | Outpatient (RCR) | payer OTHER ==
[2020-06-01] VITALS (7 sets, daily range): BP systolic 135–160; BP diastolic 77–96
[~2020-06-01] VITALS: Ht 30.5 cm; Wt 0.5 kg
[2020-06-01] MEDS ORDERED: NS 500ML ONE (06:11)
[2020-06-01] MEDS ORDERED: Ketorolac 60mg Inj IM ONE (06:11)
[2020-06-01] MEDS ORDERED: Succinylcholine 20mg/ml 10ml vial ONE (06:11)
[2020-06-01] MEDS ORDERED: Methohexita Syr 100mg/10ml IVP ONE (06:11)
--- NOTE | 2020-06-01 09:07 | NUR ---
Pt. nauseous with diarrhea. Informed Dr. Todd and Dr. Root of patient's symptoms. Pt. to continue with procedure. No new orders given
== END 2020-06-02 | disposition home or self-care (01) ==
LOC: ECT 06:10
DX: F31.81 Bipolar II disorder (principal)
CPT/HCPCS: 90870; J0330; J2405; J3360; J7040

== ENCOUNTER 2020-07-06 05:29 | Outpatient (RCR) | payer OTHER ==
[2020-07-06] VITALS (7 sets, daily range): BP systolic 104–142; BP diastolic 54–90
[~2020-07-06] VITALS: Ht 188 cm; Wt 107.0 kg
[2020-07-06] MEDS ORDERED: NS 500ML ONE (05:30)
[2020-07-06] MEDS ORDERED: Methohexita Syr 100mg/10ml IVP ONE (05:30)
[2020-07-06] MEDS ORDERED: Ketorolac 30mg Inj ONE (05:30)
[2020-07-06] MEDS ORDERED: Succinylcholine 20mg/ml 10ml vial ONE (05:30)
== END 2020-07-31 | disposition home or self-care (01) ==
LOC: ECT 05:29
DX: F31.81 Bipolar II disorder (principal)
CPT/HCPCS: 90870; J0330; J1885; J2405; J3360; J7040